=== PATIENT | female | born 1945 | race African-American/Black ===

== ENCOUNTER 2016-12-30 11:13 | Emergency (ER) | payer MEDICARE, MEDICAID ==
[~2016-12-30] VITALS: Ht 157.5 cm; Wt 112.0 kg
[~2016-12-30 11:13] MED LIST: AMLO10TA80 PO; ASPI-1158 PO; ATOR10TA69 PO; DIGO250T81 PO; FLUT10SP BOTHNSTRLS; FURO40TA5 PO; GABA-529 PO; IBUP-1636 PO; LOSA25TA12 PO; METF500T4 PO; POTA8TAB4 PO; [UNRECOGNIZED DRUG - CODE] PO
[2016-12-30] MEDS ORDERED: MAGNESIUM/ALUMINUM HYDROXIDE/SIMETHICONE 30ML UDC PO STA (12:02)
[2016-12-30] MEDS ORDERED: FAMOTIDINE 20MG/2ML VIAL IV SCH (12:15)
[2016-12-30] MEDS ORDERED: VISCOUS LIDOCAINE 2% 15 ML UDC MM ONE (12:15)
[2016-12-30 12:27] LABS: BASOPHILS % 0.8 % (0.0-2.0); EOSINOPHILS % 1.1 % (0.0-5.0); HEMATOCRIT. 41.2 % (36.0-48.0); HEMOGLOBIN. 13.7 g/dL (12.0-16.0); LYMPHOCYTES % 21.7 % (20.0-50.0); MEAN CORPUSCULAR HEMOGLOBIN 28.3 pg (28.0-32.0); MEAN CORPUSCULAR VOLUME 85.1 fL (81.0-99.0); MEAN PLATELET VOLUME 7.3 fl (7.4-10.4); MONOCYTES % 8.6 % (2.0-8.0); NEUTROPHILS % 67.8 % (40.0-76.0); PLATELET 239 x1000/uL (130-400); RED BLOOD CELL COUNT 4.85 mill/uL (4.2-5.4); RED CELL DISTRIBUTION WIDTH 14.6 % (11.6-14.6)
[2016-12-30 12:36] LABS: PARTIAL THROMBOPLASTIN TIME 25.9 sec (24.0-34.0); PROTHROMBIN TIME 10.7 sec
[2016-12-30 12:37] LABS: CARBON DIOXIDE 33 mEq/L (21-32); CHLORIDE 103 mEq/L (98-107)
[2016-12-30 12:43] LABS: TROPONIN I < 0.02 ng/mL (0.00-0.04)
[2016-12-30 15:30] VITALS: BP 141/88
== END 2016-12-30 15:56 | disposition home or self-care (01) ==
LOC: ER 11:47
DX: K21.9 Gastro-esophageal reflux disease without esophagitis (principal); E11.9 Type 2 diabetes mellitus without complications; I50.9 Heart failure, unspecified; E78.00 Pure hypercholesterolemia, unspecified; I10 Essential (primary) hypertension; Z90.49 Acquired absence of other specified parts of digestive tract; Z88.0 Allergy status to penicillin; Z79.82 Long term (current) use of aspirin; Z96.659 Presence of unspecified artificial knee joint
CPT/HCPCS: 36415; 71010; 80053; 83690; 84484; 85025; 85610; 85730; 93005; 96374; 99285; J3490

== ENCOUNTER 2021-03-11 10:35 | Inpatient (IN) | payer MEDICARE, MEDICAID ==
[~2021-03-11] VITALS: Ht 157.5 cm; Wt 122.0 kg
[~2021-03-11 10:35] MED LIST changes: -ASPI-1158 PO; +ASPI-1406 PO; +DIGO250T79 PO; -DIGO250T81 PO; -FLUT10SP BOTHNSTRLS; -LOSA25TA12 PO; +LOSA25TA26 PO; +METF-414 PO; -METF500T4 PO; +OMEP-265 PO; -[UNRECOGNIZED DRUG - CODE] PO
[2021-03-11 12:11] LABS: BASOPHILS % 1.2 % (0.0-2.0); EOSINOPHILS % 0.5 % (0.0-5.0); HEMATOCRIT. 43.5 % (36.0-48.0); LYMPHOCYTES % 19.7 % (20.0-50.0); MEAN CORPUSCULAR HEMOGLOBIN 28.8 pg (28.0-32.0); MEAN CORPUSCULAR VOLUME 83.5 fL (81.0-99.0); MEAN PLATELET VOLUME 6.9 fl (7.4-10.4); MONOCYTES % 11.3 % (2.0-8.0); NEUTROPHILS % 67.3 % (40.0-76.0); PLATELET 267 x1000/uL (130-400); RED BLOOD CELL COUNT 5.22 mill/uL (4.2-5.4); RED CELL DISTRIBUTION WIDTH 15.7 % (11.6-14.6)
[2021-03-11 12:19] LABS: CHLORIDE 104 mEq/L (98-107)
[2021-03-11] MEDS ORDERED: CEFTRIAXONE 1 G PREMIX 50 ML IV ONE (12:45)
[2021-03-11] MEDS ORDERED: CLONIDINE 0.1MG TABLET PO PRN (12:45)
[2021-03-11] MEDS ORDERED: ACETAMINOPHEN 325MG TABLET PO PRN (12:45)
[2021-03-11] MEDS ORDERED: ONDANSETRON HCL 4MG/2ML INJ IV PRN (12:45)
[2021-03-11] MEDS ORDERED: MAGNESIUM/ALUMINUM HYDROXIDE/SIMETHICONE 30ML UDC PO PRN (12:45)
[2021-03-11] MEDS ORDERED: AZITHROMYCIN 500 MG TABLET PO ONE (12:45)
[2021-03-11] MEDS ORDERED: FUROSEMIDE 20MG/2ML VIAL IVP ONE (12:45)
[2021-03-11] MEDS ORDERED: AZITHROMYCIN 500 MG TABLET PO NR (13:00)
[2021-03-11] MEDS ORDERED: KCL 10MEQ/50ML PREMIX 50 ML IV NR (13:00)
[2021-03-11] MEDS: FUROSEMIDE 40MG/4ML VIAL IV SCH (14:43)
[2021-03-11] MEDS: ENOXAPARIN 40MG/0.4ML SYR SUBCUT SCH (14:44)
[2021-03-11 21:20] VITALS: BP 128/71
[2021-03-11 22:05] LABS: CLARITY URINE CLEAR (CLEAR); COLOR URINE YELLOW (YELLOW); KETONES URINE NEGATIVE (NEGATIVE); LEUKOCYTE ESTERASE URINE NEGATIVE (NEGATIVE); NITRITE URINE NEGATIVE (NEGATIVE); OCCULT BLOOD URINE NEGATIVE (NEGATIVE); PH URINE 7.5 (4.5-8.0); PROTEIN URINE NEGATIVE (NEGATIVE); SPECIFIC GRAVITY URINE 1.009 (1.005-1.030)
[2021-03-12] VITALS: BP 124/48
[2021-03-12] MEDS ORDERED: DEXTROSE 50% WATER 50ML SYRINGE IV PRN
[2021-03-12] MEDS: IPRATROPIUM/ALBUTEROL 0.5-3(2.5)MG/3ML NEB NEB SCH ×4 (02:46→20:57)
[2021-03-12 04:00] VITALS: BP 104/57
[2021-03-12] MEDS: BLOOD SUGAR DIAGNOSTIC STRIP TEST SCH ×4 (05:40→21:00)
[2021-03-12] MEDS: INSULIN LISPRO 100 UNITS/ML SUBCUT SCH ×4 (05:41→21:00)
[2021-03-12 06:30] LABS: BASOPHILS % 0.4 % (0.0-2.0); EOSINOPHILS % 0.7 % (0.0-5.0); HEMATOCRIT. 42.3 % (36.0-48.0); HEMOGLOBIN. 14.3 g/dL (12.0-16.0); MEAN CORPUSCULAR HEMOGLOBIN 28.3 pg (28.0-32.0); MEAN CORPUSCULAR VOLUME 83.6 fL (81.0-99.0); MEAN PLATELET VOLUME 7.3 fl (7.4-10.4); MONOCYTES % 10.2 % (2.0-8.0); NEUTROPHILS % 73.7 % (40.0-76.0); PLATELET 253 x1000/uL (130-400); RED BLOOD CELL COUNT 5.06 mill/uL (4.2-5.4); RED CELL DISTRIBUTION WIDTH 15.7 % (11.6-14.6)
[2021-03-12 07:36] LABS: CHLORIDE 105 mEq/L (98-107)
[2021-03-12 08:00] VITALS: BP 128/74
[2021-03-12] MEDS: FUROSEMIDE 40MG/4ML VIAL IV SCH (08:09)
[2021-03-12] MEDS ORDERED: AMLODIPINE 10MG TABLET PO SCH (11:30)
[2021-03-12] MEDS ORDERED: DIGOXIN 250MCG TABLET PO SCH (11:30)
[2021-03-12] MEDS ORDERED: POTASSIUM CHLORIDE 20MEQ TABLET SR PO NR (11:30)
[2021-03-12 12:00] VITALS: BP 119/77
[2021-03-12] MEDS: METFORMIN HCL 500MG TABLET PO SCH (12:45)
[2021-03-12] MEDS: ENOXAPARIN 40MG/0.4ML SYR SUBCUT SCH (12:45)
[2021-03-12] MEDS: LOSARTAN POTASSIUM 25 MG TABLET PO SCH (12:46)
[2021-03-12] MEDS: GABAPENTIN 100MG CAPSULE PO SCH (12:46)
[2021-03-12] MEDS ORDERED: MAGNESIUM HYDROXIDE 400MG/5ML 30ML UDC PO NR (13:00)
[2021-03-12] MEDS ORDERED: SENNOSIDES/DOCUSATE SOD 8.6/50MG TABLET PO PRN (13:00)
[2021-03-12 16:00] VITALS: BP 95/50
[2021-03-12] MEDS: DILTIAZEM HCL 60MG TABLET PO SCH (17:18)
[2021-03-12 17:19] LABS: HEPATITIS B SURFACE ANTIGEN NEGATIVE
[2021-03-12 20:00] VITALS: BP 101/53
[2021-03-13] VITALS: BP 100/51
[2021-03-13] MEDS: DILTIAZEM HCL 60MG TABLET PO SCH ×3 (01:29→18:38)
[2021-03-13 04:00] VITALS: BP 104/59
[2021-03-13] MEDS ORDERED: LEVOFLOXACIN 500MG PREMIX 100 ML IV SCH (06:30)
[2021-03-13] MEDS: INSULIN LISPRO 100 UNITS/ML SUBCUT SCH ×4 (07:40→21:00)
[2021-03-13 08:00] VITALS: BP 130/87
[2021-03-13] MEDS: BLOOD SUGAR DIAGNOSTIC STRIP TEST SCH ×4 (08:02→21:00)
[2021-03-13] MEDS: IPRATROPIUM/ALBUTEROL 0.5-3(2.5)MG/3ML NEB NEB SCH ×3 (08:27→19:41)
[2021-03-13] MEDS: METFORMIN HCL 500MG TABLET PO SCH (09:00)
[2021-03-13] MEDS: LOSARTAN POTASSIUM 25 MG TABLET PO SCH (09:41)
[2021-03-13] MEDS: POTASSIUM CHLORIDE 8 MEQ TABLET.SA PO SCH (09:41)
[2021-03-13] MEDS: GABAPENTIN 100MG CAPSULE PO SCH ×3 (09:41→18:04)
[2021-03-13] MEDS: FUROSEMIDE 40MG/4ML VIAL IV SCH (09:42)
[2021-03-13] MEDS: POLYETHYLENE GLYCOL 3350 (17GM) 1 DOSE PACK PO SCH (09:42)
[2021-03-13] MEDS: LEVOFLOXACIN 750MG PREMIX 150 ML IV SCH (09:42)
[2021-03-13 10:01] LABS: BASOPHILS % 0.4 % (0.0-2.0); HEMATOCRIT. 45.8 % (36.0-48.0); LYMPHOCYTES % 26.5 % (20.0-50.0); MEAN CORPUSCULAR HEMOGLOBIN 28.1 pg (28.0-32.0); MEAN CORPUSCULAR VOLUME 85.4 fL (81.0-99.0); MEAN PLATELET VOLUME 7.3 fl (7.4-10.4); MONOCYTES % 9.8 % (2.0-8.0); NEUTROPHILS % 62.3 % (40.0-76.0); PLATELET 274 x1000/uL (130-400); RED BLOOD CELL COUNT 5.36 mill/uL (4.2-5.4)
[2021-03-13 10:18] LABS: CHLORIDE 106 mEq/L (98-107)
[2021-03-13 10:28] LABS: PHOSPHORUS 3.8 mg/dL (2.5-4.9)
[2021-03-13 12:00] VITALS: BP 105/72
[2021-03-13 16:00] VITALS: BP 102/53
[2021-03-13] MEDS: ENOXAPARIN 30MG/0.3ML SYR SUBCUT SCH (18:04)
[2021-03-13 20:00] VITALS: BP 118/66
[2021-03-14] VITALS: BP 110/62
[2021-03-14] MEDS: DILTIAZEM HCL 60MG TABLET PO SCH ×3 (01:45→17:35)
[2021-03-14 04:00] VITALS: BP 102/64
[2021-03-14] MEDS: ENOXAPARIN 30MG/0.3ML SYR SUBCUT SCH ×2 (06:10→17:27)
[2021-03-14] MEDS: BLOOD SUGAR DIAGNOSTIC STRIP TEST SCH ×4 (06:10→20:48)
[2021-03-14] MEDS: INSULIN LISPRO 100 UNITS/ML SUBCUT SCH ×4 (06:10→20:48)
[2021-03-14 07:44] LABS: BASOPHILS % 0.7 % (0.0-2.0); HEMATOCRIT. 40.7 % (36.0-48.0); HEMOGLOBIN. 13.4 g/dL (12.0-16.0); LYMPHOCYTES % 23.5 % (20.0-50.0); MEAN CORPUSCULAR HEMOGLOBIN 28.4 pg (28.0-32.0); MEAN CORPUSCULAR VOLUME 86.2 fL (81.0-99.0); MEAN PLATELET VOLUME 7.2 fl (7.4-10.4); MONOCYTES % 10.1 % (2.0-8.0); NEUTROPHILS % 64.7 % (40.0-76.0); PLATELET 236 x1000/uL (130-400); RED BLOOD CELL COUNT 4.73 mill/uL (4.2-5.4)
[2021-03-14 07:47] LABS: CHLORIDE 105 mEq/L (98-107)
[2021-03-14 08:00] VITALS: BP 133/77
[2021-03-14] MEDS: FUROSEMIDE 40MG/4ML VIAL IV SCH (08:57)
[2021-03-14] MEDS: POLYETHYLENE GLYCOL 3350 (17GM) 1 DOSE PACK PO SCH (08:57)
[2021-03-14] MEDS: POTASSIUM CHLORIDE 8 MEQ TABLET.SA PO SCH (08:57)
[2021-03-14] MEDS: GABAPENTIN 100MG CAPSULE PO SCH ×3 (08:57→17:26)
[2021-03-14] MEDS: LOSARTAN POTASSIUM 25 MG TABLET PO SCH (08:58)
[2021-03-14] MEDS: METFORMIN HCL 500MG TABLET PO SCH (09:00)
[2021-03-14] MEDS ORDERED: POTASSIUM CHLORIDE 20MEQ TABLET SR PO NR (11:15)
[2021-03-14 12:00] VITALS: BP 115/65
[2021-03-14] MEDS: POTASSIUM CHLORIDE 20MEQ TABLET SR PO SCH (13:04)
[2021-03-14 16:30] VITALS: BP 112/58
[2021-03-14] MEDS: IPRATROPIUM/ALBUTEROL 0.5-3(2.5)MG/3ML NEB NEB SCH ×2 (16:33→20:39)
[2021-03-14] MEDS ORDERED: PROMETHAZINE/DEXTROMETHORPHAN 6.25-15MG/5ML BOTTLE 120ML PO PRN (18:00)
[2021-03-14 20:00] VITALS: BP_SYST 116; BP_SYST 118; BP_DIAS 60; BP_DIAS 67
[2021-03-15] VITALS: BP_SYST 132; BP_SYST 178; BP_DIAS 108; BP_DIAS 68
[2021-03-15] MEDS: DILTIAZEM HCL 60MG TABLET PO SCH ×2 (02:00→09:32)
[2021-03-15] MEDS: IPRATROPIUM/ALBUTEROL 0.5-3(2.5)MG/3ML NEB NEB SCH ×2 (02:17→09:05)
[2021-03-15 04:00] VITALS: BP 117/63
[2021-03-15] MEDS: BLOOD SUGAR DIAGNOSTIC STRIP TEST SCH (05:27)
[2021-03-15] MEDS: INSULIN LISPRO 100 UNITS/ML SUBCUT SCH (05:27)
[2021-03-15] MEDS: ENOXAPARIN 30MG/0.3ML SYR SUBCUT SCH (05:27)
[2021-03-15 08:00] VITALS: BP 114/67
[2021-03-15] MEDS: METFORMIN HCL 500MG TABLET PO SCH (09:00)
[2021-03-15] MEDS: POLYETHYLENE GLYCOL 3350 (17GM) 1 DOSE PACK PO SCH (09:00)
[2021-03-15 09:31] LABS: BASOPHILS % 0.8 % (0.0-2.0); EOSINOPHILS % 1.3 % (0.0-5.0); HEMATOCRIT. 41.9 % (36.0-48.0); HEMOGLOBIN. 13.9 g/dL (12.0-16.0); MEAN CORPUSCULAR HEMOGLOBIN 28.2 pg (28.0-32.0); MEAN CORPUSCULAR VOLUME 85.1 fL (81.0-99.0); MEAN PLATELET VOLUME 7.4 fl (7.4-10.4); MONOCYTES % 10.3 % (2.0-8.0); NEUTROPHILS % 63.6 % (40.0-76.0); PLATELET 248 x1000/uL (130-400); RED BLOOD CELL COUNT 4.92 mill/uL (4.2-5.4); RED CELL DISTRIBUTION WIDTH 15.4 % (11.6-14.6)
[2021-03-15] MEDS: LEVOFLOXACIN 750MG PREMIX 150 ML IV SCH (09:31)
[2021-03-15] MEDS: GABAPENTIN 100MG CAPSULE PO SCH (09:31)
[2021-03-15] MEDS: POTASSIUM CHLORIDE 20MEQ TABLET SR PO SCH (09:31)
[2021-03-15] MEDS: LOSARTAN POTASSIUM 25 MG TABLET PO SCH (09:31)
[2021-03-15] MEDS: FUROSEMIDE 40MG/4ML VIAL IV SCH (09:31)
[2021-03-15 09:43] LABS: CHLORIDE 108 mEq/L (98-107)
[2021-03-15 12:00] VITALS: BP 124/73
[2021-03-15 12:14] VITALS: BP 114/67
[2021-03-17] MEDS ORDERED: LEVOFLOXACIN 250MG TABLET PO SCH (11:00)
== END 2021-03-15 12:50 | disposition home or self-care (01) | DRG 194 ==
LOC: ER 10:47 → SUPCPDRO 12:39 → MICUSO 12:45 → 8WST 19:30
PROVIDERS: ADMIT Internal Medicine Nephrology; ATTEND Internal Medicine Nephrology
DX: I11.0 Hypertensive heart disease with heart failure (principal); J44.1 Chronic obstructive pulmonary disease with (acute) exacerbation; K76.0 Fatty (change of) liver, not elsewhere classified; I50.33 Acute on chronic diastolic (congestive) heart failure; E11.9 Type 2 diabetes mellitus without complications; K59.00 Constipation, unspecified; E78.5 Hyperlipidemia, unspecified; E87.6 Hypokalemia; G47.30 Sleep apnea, unspecified; K80.20 Calculus of gallbladder without cholecystitis without obstruction; N28.1 Cyst of kidney, acquired; E21.3 Hyperparathyroidism, unspecified; G47.33 Obstructive sleep apnea (adult) (pediatric); E78.00 Pure hypercholesterolemia, unspecified; M19.90 Unspecified osteoarthritis, unspecified site; Z20.822 Contact with and (suspected) exposure to COVID-19; R16.0 Hepatomegaly, not elsewhere classified; E66.01 Morbid (severe) obesity due to excess calories; N28.89 Other specified disorders of kidney and ureter; Z87.891 Personal history of nicotine dependence; Z68.42 Body mass index [BMI] 45.0-49.9, adult; Z79.84 Long term (current) use of oral hypoglycemic drugs; Z79.899 Other long term (current) drug therapy; Z88.0 Allergy status to penicillin; Z79.82 Long term (current) use of aspirin; Z90.49 Acquired absence of other specified parts of digestive tract
CPT/HCPCS: 36415; 71045; 76700; 80048; 80053; 80076; 81003; 82248; 82962; 83036; 83605; 83735; 83880; 84100; 84443; 84484; 85025; 86705; 86709; 86803; 87340; 87426; 93005; 93306; 93970; 94640; 97161; 99285; C1893; J0696; J1650; J1815; J1940; J1956; J3480

== ENCOUNTER 2022-08-22 15:13 | Emergency (ER) | payer MEDICARE, OTHER ==
[~2022-08-22] VITALS: Ht 167.6 cm; Wt 90.0 kg
[~2022-08-22 15:13] MED LIST changes: +MECL-159 MT; -POTA8TAB4 PO; +POTA8TAB70 PO
[2022-08-22 15:42] VITALS: BP 164/88
[2022-08-22] MEDS ORDERED: KETOROLAC 60MG/2ML VIAL IM STA (17:58)
[2022-08-22] MEDS ORDERED: ONDANSETRON 4MG ODT PO STA (17:58)
[2022-08-22 18:17] LABS: BASOPHILS % 0.3 % (0.0-2.0); EOSINOPHILS % 0.3 % (0.0-5.0); HEMATOCRIT. 44.1 % (36.0-48.0); HEMOGLOBIN. 14.8 g/dL (12.0-16.0); LYMPHOCYTES % 11.2 % (20.0-50.0); MEAN CORPUSCULAR HEMOGLOBIN 29.1 pg (28.0-32.0); MEAN CORPUSCULAR VOLUME 86.9 fL (81.0-99.0); MEAN PLATELET VOLUME 6.9 fl (7.4-10.4); MONOCYTES % 6.9 % (2.0-8.0); NEUTROPHILS % 81.3 % (40.0-76.0); PLATELET 301 x1000/uL (130-400); RED BLOOD CELL COUNT 5.08 mill/uL (4.2-5.4); RED CELL DISTRIBUTION WIDTH 14.4 % (11.6-14.6)
[2022-08-22 18:25] LABS: CHLORIDE 103 mEq/L (98-107)
[2022-08-22 18:41] LABS: CLARITY URINE CLEAR (CLEAR); COLOR URINE YELLOW (YELLOW); KETONES URINE 1+ (NEGATIVE); LEUKOCYTE ESTERASE URINE NEGATIVE (NEGATIVE); NITRITE URINE NEGATIVE (NEGATIVE); OCCULT BLOOD URINE NEGATIVE (NEGATIVE); PH URINE 7.5 (4.5-8.0); PROTEIN URINE NEGATIVE (NEGATIVE); SPECIFIC GRAVITY URINE 1.019 (1.005-1.030)
[2022-08-22] MEDS ORDERED: IBUP-2028 MT (19:27)
== END 2022-08-22 20:06 | disposition home or self-care (01) ==
LOC: ER 15:13
DX: R10.9 Unspecified abdominal pain (principal); N28.9 Disorder of kidney and ureter, unspecified; J44.9 Chronic obstructive pulmonary disease, unspecified; E11.9 Type 2 diabetes mellitus without complications; E78.00 Pure hypercholesterolemia, unspecified; I11.0 Hypertensive heart disease with heart failure; I50.9 Heart failure, unspecified; M19.90 Unspecified osteoarthritis, unspecified site; Z88.0 Allergy status to penicillin; Z79.82 Long term (current) use of aspirin; Z90.49 Acquired absence of other specified parts of digestive tract; Z96.659 Presence of unspecified artificial knee joint
CPT/HCPCS: 36415; 71045; 74176; 80053; 81003; 83690; 84484; 85025; 93005; 96372; 99285; J1885; Q0162

== ENCOUNTER 2023-05-18 18:33 | Emergency (ER) | payer MEDICARE, OTHER ==
[~2023-05-18] VITALS: Ht 165.1 cm; Wt 100.0 kg
[~2023-05-18 18:33] MED LIST changes: +IBUP-2028 MT; -MECL-159 MT; +MECL-299 MT
[2023-05-18 18:46] VITALS: O2SAT 100
[2023-05-18 20:15] LABS: BASOPHILS % 0.7 % (0.0-2.0); CHLORIDE 107 mEq/L (98-107); EOSINOPHILS % 1.6 % (0.0-5.0); HEMATOCRIT. 41.8 % (36.0-48.0); HEMOGLOBIN. 14.2 g/dL (12.0-16.0); INDEX HEMOLYSI 2 (1-3); INDEX ICTERIC 1 (1-4); INDEX LIPEMIC 1 (1-3); LYMPHOCYTES % 23.9 % (20.0-50.0); MEAN CORPUSCULAR HEMOGLOBIN 30.2 pg (28.0-32.0); MEAN CORPUSCULAR HGB CONC 33.9 g/dL (31.0-37.0); MEAN CORPUSCULAR VOLUME 89.2 fL (81.0-99.0); MEAN PLATELET VOLUME 7.2 fl (7.4-10.4); MONOCYTES % 9.4 % (2.0-8.0); NEUTROPHILS % 64.4 % (40.0-76.0); PLATELET 291 x1000/uL (130-400); POTASSIUM 4.2 mEq/L (3.5-5.1); RED BLOOD CELL COUNT 4.69 mill/uL (4.2-5.4); RED CELL DISTRIBUTION WIDTH 14.3 % (11.6-14.6); SODIUM 140 mEq/L (136-145); WHITE BLOOD COUNT 9.5 x1000/uL (4.5-11.0)
[2023-05-18 20:27] LABS: ALANINE AMINOTRANSFERASE 22 IU/L (13-61); ALBUMIN 3.5 g/dL (3.4-5.0); ASPARTATE AMINOTRANSFERASE 18 IU/L (15-37); BILIRUBIN TOTAL 0.4 mg/dL (0.1-1.0); CARBON DIOXIDE 30 mEq/L (21-32); CREATININE 1.2 mg/dL (0.6-1.3); GLUCOSE 109 mg/dL (70-105); PROTEIN TOTAL 8.2 g/dL (6.0-8.3); UREA NITROGEN BLOOD 20 mg/dL (7-21)
[2023-05-18 22:55] VITALS: BP 102/68; PULSE 81; RESP 18; TEMP 97.6
== END 2023-05-18 22:56 | disposition home or self-care (01) ==
LOC: ER 18:49
DX: R00.2 Palpitations (principal); M19.90 Unspecified osteoarthritis, unspecified site; J44.9 Chronic obstructive pulmonary disease, unspecified; E11.9 Type 2 diabetes mellitus without complications; E78.00 Pure hypercholesterolemia, unspecified; I11.0 Hypertensive heart disease with heart failure; I50.9 Heart failure, unspecified; Z90.49 Acquired absence of other specified parts of digestive tract; Z96.653 Presence of artificial knee joint, bilateral; Z98.890 Other specified postprocedural states; Z88.0 Allergy status to penicillin; Z88.8 Allergy status to other drugs, medicaments and biological substances
CPT/HCPCS: 36415; 80053; 85025; 93005; 99284